=== PATIENT | male | born 1950 | race Caucasian/White ===

== ENCOUNTER 2018-04-21 08:01 | Day surgery (SDC) | payer OTHER ==
[2018-04-21] MEDS ORDERED: FENTAnyl 50 MCG/ML VIAL (10:15)
[2018-04-21] MEDS ORDERED: MIDAZOLAM 1 MG/ML 2 ML INJ ×2 (10:15)
== END 2018-04-21 13:04 | disposition home or self-care (01) ==
LOC: GIL 08:01
DX: Z12.11 Encounter for screening for malignant neoplasm of colon (principal); K64.8 Other hemorrhoids; D12.2 Benign neoplasm of ascending colon; E11.9 Type 2 diabetes mellitus without complications
CPT/HCPCS: 45380; 82962; 88305